=== PATIENT | male | born 1930 | race Caucasian/White ===

== ENCOUNTER 2016-10-06 07:04 | Emergency (ER) | payer MEDICARE, OTHER ==
--- NOTE | 2016-10-06 15:56 | EDDOCDS ---
Nurse's Notes [facility] Name: Thaddeus Griffith Age: 86 yrs Sex: Male : 1930 Arrival Date: 10/06/2016 Time: 07:04 Bed BHU1 Private MD: Bell, Diagnosis: Unspecified dementia;Major depressive disorder, recurrent, mild Presentation: 10/06 07:15 Presenting complaint: EMS states: Sent here from [facility] c/o mlb1 homicidal and suicidal ideations with recent thoughts of killing his . Mental Health Triage Level: Level 2: The patient displays active suicidal ideations. The patient displays active homicidal ideations. Adult Sepsis Screening: The patient does not have new or worsening altered mentation. Patient's respiratory rate is less than 22. Systolic blood pressure is greater than 100. Patient has a qSOFA score of 0- Negative Sepsis Screen. Mental Health Triage Level: Level 2:. Suicide/Homicide risk assessment- The patient admits to and/or has been reported to be having suicidal ideations. The patient admits to and/or has been reported to be having homicidal ideations. The patient reports that he/she has not been admitted to an inpatient mental health facility in the last 30 days. The patient reports that he/she does not have a recent or current history of substance abuse. The patient reports that he/she has no prior history of suicide attempt and/or organized plan. The patient reports that he/she has not experienced a significant life altering event in the last 30 days. The patient reports that he/she lacks adequate social support. The patient reports he/she has significant chronic medical condition(s). Status: Patient is not a supervisor volunteer services or dependent. Transition of care: patient was received from [facility]. 07:15 Acuity: SHANNON Level 3 mlb1 07:15 Method Of Arrival: Ambulance mlb1 Triage Assessment: 07:32 General: Appears in no apparent distress, Behavior is appropriate for age, cooperative. mlb1 Pain: Denies pain. The patient is triaged at the bedside. See Assessment in Nurses Notes section of ED record. Neurological: Level of Consciousness is awake, alert, Oriented to person, place. Respiratory: Airway is patent Respiratory effort is even, unlabored. Historical: - Allergies: Isoproterenol; Lisinopril; - Home Meds: 1. aspirin 81 mg Oral tab 1 tab once daily (Last dose: 10/05/2016) 2. finasteride 5 mg oral tab 1 tab once daily (Last dose: 10/05/2016) 3. propafenone 150 mg Oral tab three times a day (Last dose: 10/05/2016) 4. valsartan 160 mg oral tab 1 tab once daily (Last dose: 10/05/2016) 5. digoxin 125 mcg Oral tab 1 tab once daily (Last dose: 10/05/2016) 6. Namenda oral 7 mg oral daily (Last dose: 10/05/2016) 7. tamsulosin 0.4 mg oral cp24 1 cap once daily (Last dose: 10/05/2016) 8. lacosamide 150 mg oral tab 1 tab 2 times per day (Last dose: 10/05/2016) 9. donepezil 10 mg oral tab 1 tab once daily (Last dose: 10/05/2016) 10. levetiracetam 500 mg oral tab 1 tab 2 times per day (Last dose: 10/05/2016) 11. Mirtazapine Oral 12. mirtazapine 30 mg Oral tab 1 tab nightly (Last dose: 10/05/2016) 13. Sertraline 25 mg daily (Last dose: 10/05/2016) - PMHx: Dementia; Hypertension; Osteoarthritis; Cataracts; BPH; Atrial Fib; Subdural Hematoma; - PSHx: Hernia repair; hip sugery; - The history from nurses notes was reviewed: and I agree with what is documented. - Social history: Smoking status: Patient states was never smoker of tobacco. No barriers to communication noted, The patient speaks fluent South African, Speaks appropriately for age. - : The pt / caregiver states he / she is not on anticoagulants. Home medication list is obtained from the facility MAR. - Exposure Risk Screening:: None identified. - Immunization history:: unknown. - Family history: Not pertinent. - Social history:: resides in a [facility]. Screenin:36 Screening information is obtained from [facility] record. Fall risk: At risk due to age, The mlb1 following interventions are performed due to a positive Fall Risk Screen: Fall Risk is added to Special Handling on the patient Summary Screen. A Fall Risk Bracelet was applied to the patient. Side Rails are placed in the up position. A Call [place] is given with instruction to call for help when getting out of bed. Fall Alert bracelet is placed on the patient. Assistance ADL's: Requires assistance with ambulation, assistance is provided by supervised. medication administration, assistance is provided by residence staff. Abuse/DV Screen: The patient / caregiver reports he/she is: not in a situation that causes fear, pain or injury. Nutritional screening: No deficits noted. Advance Directives: Currently, there is There is an active DNR order but there is no copy available at this time. home support is adequate. Assessment: 07:43 General: Appears in no apparent distress, comfortable, Behavior is appropriate for age, mlb1 cooperative. Pain: Denies pain. Neurological: Level of Consciousness is awake, alert, Oriented to person, place. Respiratory: No deficits noted. Derm: No deficits noted. 08:30 General: Appears in no apparent distress, comfortable, Behavior is cooperative, quiet. mlb1 Pain: Denies pain. 09:22 General: Appears Pt ambulated out of room unsteady gait witnessed by security staff mlb1 began to fall assisted to floor by security staff no injury noted. 09:30 General: Appears in no apparent distress, comfortable, Behavior is appropriate for age, mlb1 cooperative. Pain: Denies pain. Neurological: Level of Consciousness is awake, confused, Oriented to person, place. Respiratory: No deficits noted. Musculoskeletal: Circulation, motion, and sensation intact Range of motion intact in all extremities. Injury Description: No known injury. 10:20 General: Appears in no apparent distress, comfortable, Behavior is appropriate for age, mlb1 cooperative. Pain: Denies pain. Neurological: Level of Consciousness is awake, alert, Oriented to person, place. Respiratory: No deficits noted. 11:15 General: Appears in no apparent distress, comfortable, to be sleeping. Behavior is mlb1 appropriate for age, cooperative. 12:17 General: Appears in no apparent distress, comfortable, Behavior is appropriate for age, mlb1 cooperative. Pain: Denies pain. Respiratory: No deficits noted. 13:43 General: Appears in no apparent distress, comfortable, Behavior is appropriate for age, mlb1 cooperative. Pain: Denies pain. Neurological: Level of Consciousness is awake, alert, Oriented to person, place. Respiratory: No deficits noted. 14:50 General: Appears in no apparent distress, comfortable, Behavior is appropriate for age, mlb1 cooperative. Pain: Denies pain. Neurological: Level of Consciousness is awake, alert, Oriented to person, place. Derm: No deficits noted. 15:53 General: Appears in no apparent distress, comfortable, Behavior is appropriate for age, mlb1 cooperative. Neurological: Level of Consciousness is awake, alert, Oriented to person, place. Respiratory: No deficits noted. Mental Health Eval: 08:45 Mental health consult is initiated at 08:45. Status: The patient is not a me supervisor volunteer services or dependent. [facility] Behavioral Health: The patient is not an established patient of [facility] Behavioral Health. Referral Information: Evaluation referral is generated by [facility]. The patient was referred for evaluation because reportedly made suicidal and homicidal statements last night. 09:09 Subjective: The patients chief complaint is Pt is difficult to interview due to hearing ca impairment. . 10:31 Subjective: The patients chief complaint is Pt shouts he is not suicidal, "that is ca bullshit!" Admits to sometimes making statements and then says he doesn't mean it.. Patient's mood is irritable, Pt is a resident at [facility]'s [facility]. Spoke to pt's daughter, Clarissa ([phone]). She is in support of pt being returned to usp. She says pt sometimes makes statements of SI/HI. He has been seen recently by psychiatrist Dr Luu and some med changes had been advised. However it is not clear whether the changes were implemented. Pt resides on a dementia unit at [facility]. Mental Health history: no relevant mental health problems or treatments. Current living environment is Family / Home Support: Good family supports The patient currently lives [facility]. The patient is . Patient presents to Emergency Department with the following symptoms within the past 2 weeks: agitation, anger. Mental status exam: Patients appearance is disheveled thin, Patient's behavior is Behavior varies . Mood is irritable. Appetite is normal. Memory is fair. Energy level is normal. Thought process is loose. Cognitive level is Oriented to person, situation Patient's insight is poor. Judgement is poor. Rapport with interviewer is good. Suicidal Ideation is denied. Homicidal ideation is denied. Disposition: Medically cleared for disposition by Jesse Cm MD Psychiatric Consult is performed by phone with Dr Erica Rizo. DSM-V Differential Diagnosis: Dementia. Narrative: Awaiting transport back to SNF via [place] at 3pm. Daughter made aware pt is returning to [facility] and si in agreement with this plan. Vital Signs: 07:13 BP 165 / 79; Pulse 50; Resp 16; Temp 97.5(O); Pulse Ox 98% on R/A; Pain 0/10; mlb1 15:54 BP 114 / 72; Pulse 90; Resp 16; Temp 98.1(O); Pulse Ox 95% on R/A; Pain 0/10; mlb1 Vitals: 07:43 Log In Time N/A - ambulance arrival. mlb1 ED Course: 07:06 Patient visited by Sangita Meyers, Lactation Consultant. lbd 07:06 Patient moved to [facility] lbd 07:06 Patient moved to [facility] lbd 07:15 Psych Safety Check: Location: Psych Room. Visual Assessment: Cooperative. pjf 07:18 Triage Initiated mlb1 07:30 Psych Safety Check: Location: Psych Room. Visual Assessment: Cooperative, appears to be pjf sleeping. Psych Safety Check: Location: Psych Room. Visual Assessment: Cooperative. 07:43 Patient visited by Markel Quiñones RN. mlb1 07:45 Psych Safety Check: Location: Psych Room. Visual Assessment: Cooperative. pjf 08:04 Jesse Cm MD is Attending Physician. pc 08:05 Patient visited by Mendoza Butler Security Aide. pjf 08:12 Patient visited by Jesse Cm MD. pc 08:20 Patient visited by Mendoza Butler Security Aide. pjf 08:33 Patient visited by Mendoza Butler Security Aide. pjf 08:53 Patient visited by Mendoza Butler Security Aide. pjf 09:06 Patient visited by Mendoza Butler Security Aide. pjf 09:17 Patient visited by Mendoza Butler Security Aide. pjf 09:19 Referral list, As provided by NEISHA is Referral Physician. pc 09:20 Bell is Private Physician. pc 09:20 Bell is Referral Physician. pc 09:25 The patient / caregiver is instructed regarding the plan of care and ED course. mlb1 09:25 No IV's were initiated during this patient's visit. No procedures done that require mlb1 assistance. 09:34 Patient visited by Ferendzo, Mendoza, Security Aide. pjf 09:47 Patient visited by Jorge Gonzalez. rn1 10:01 Patient visited by Mendoza Butler Security Aide. pjf 10:18 Patient visited by Mendoza Butler Security Aide. pjf 10:34 Patient visited by Mendoza Butler Security Aide. pjf 10:51 Patient visited by Mendoza Butler Security Aide. pjf 10:56 Patient visited by Mendoza Butler Security Aideduardo. pjf 11:10 Patient visited by Jorge Gonzalez. rn1 11:35 Patient visited by Jorge Gonzalez. rn1 11:36 [facility] Payment Agreement was scanned into [employer] and attached to record. lg 11:42 Patient visited by Markel Quiñones, SHERRI. mlb1 11:56 Patient visited by Jorge Gonzalez. rn1 12:05 Patient visited by Jorge Gonzalez. rn1 12:17 Patient visited by Markel Quiñones, SHERRI. mlb1 12:19 Patient visited by Jorge Gonzalez. rn1 12:32 Patient visited by Jorge Gonzalez. rn1 12:48 Patient visited by Jorge Gonzalez. rn1 13:10 Patient visited by Jorge Gonzalez. rn1 13:15 Patient visited by Jorge Gonzalez. rn1 13:28 Patient visited by Jorge Gonzalez. rn1 13:44 Patient visited by Markel Quiñones, SHERRI. mlb1 13:55 Patient visited by Jorge Gonzalez. rn1 14:00 Patient visited by Jorge Gonzalez. rn1 14:16 Patient visited by Jorge Gonzalez. rn1 15:04 Patient visited by Jorge Gonzalez. rn1 15:32 Patient visited by Jorge Gonzalez. rn1 15:51 Patient visited by Jorge Gonzalez. rn1 Order Results: There are currently no results for this order. Outcome: 09:19 Discharge ordered by Provider. pc 15:53 Discharge Assessment: Patient awake, alert and oriented x 3. No cognitive and/or mlb1 functional deficits noted. Patient verbalized understanding of disposition instructions. patient administered narcotics - no. The following High Risk Discharge criteria are identified: None. Discharged to Extended Care Facility [facility]. Condition: good. Discharge instructions given to patient, Instructed on discharge instructions, follow up and referral plans. Demonstrated understanding of instructions, Pt was receptive of discharge instructions/ teaching. No special radiology studies were completed. Property :Personal belongings accompany Pt. 15:55 Patient left the ED. mlb1 Signatures: Jesse Cm MD MD pc Sangita Meyers, Lactation Consultant Unit lbd Eduardo, Jodee, PSA PSA ca Meagan Bravo, Reg Reg lg Mendoza Butler, Security Aide Markel Paz RN RN mlb1 Jorge Gonzalez rn1 Corrections: (The following items were deleted from the chart) 09:28 09:27 BP 129 / 81; Pulse 62bpm; Resp 16bpm; Pulse Ox 95% RA; Temp 96.5F Oral; Pain mlb1 0/10; mlb1 10:11 07:36 Fall risk: At risk due to age, mlb1 mlb1 MTDD
--- NOTE | 2016-10-06 15:56 | EDDOCDS ---
Physician Documentation [facility] Name: Thaddeus Griffith Age: 86 yrs Sex: Male : 1930 Arrival Date: 10/06/2016 Time: 07:04 Bed BHU1 Private MD: Bell, Disposition: 10/06 09:16 Critical Care: Critical care not applicable. pc Disposition: 10/06/16 09:19 Discharged to Home/Self Care. Impression: Unspecified dementia, Major depressive disorder, recurrent, mild. - Condition is Stable. - Discharge Instructions: Dementia, Depression, Adult. - Medication Reconciliation, Local Pharmacy Hours form. - Follow up: Referral list, As provided by PFS; Reason: Continuance of care. Follow up: Bell; When: As previously arranged; Reason: Continuance of care. - Problem is an ongoing problem. - Symptoms are unchanged. HPI: 08:30 This 86 yrs old Male presents to ER via Ambulance with complaints of Psych pc Problem. 08:30 The history is obtained from the patient, transfer records. In the emergency pc department, the symptoms. He lives [place] in [place], has dementia and made SI and HI threats last evening. He was seen at [facility] and medically cleared and transferred to [facility] for Psych eval. He denies any SI or HI and does not recall being in [facility] this morning. Historical: - Allergies: Isoproterenol; Lisinopril; - Home Meds: 1. aspirin 81 mg Oral tab 1 tab once daily (Last dose: 10/05/2016) 2. finasteride 5 mg oral tab 1 tab once daily (Last dose: 10/05/2016) 3. propafenone 150 mg Oral tab three times a day (Last dose: 10/05/2016) 4. valsartan 160 mg oral tab 1 tab once daily (Last dose: 10/05/2016) 5. digoxin 125 mcg Oral tab 1 tab once daily (Last dose: 10/05/2016) 6. Namenda oral 7 mg oral daily (Last dose: 10/05/2016) 7. tamsulosin 0.4 mg oral cp24 1 cap once daily (Last dose: 10/05/2016) 8. lacosamide 150 mg oral tab 1 tab 2 times per day (Last dose: 10/05/2016) 9. donepezil 10 mg oral tab 1 tab once daily (Last dose: 10/05/2016) 10. levetiracetam 500 mg oral tab 1 tab 2 times per day (Last dose: 10/05/2016) 11. Mirtazapine Oral 12. mirtazapine 30 mg Oral tab 1 tab nightly (Last dose: 10/05/2016) 13. Sertraline 25 mg daily (Last dose: 10/05/2016) - PMHx: Dementia; Hypertension; Osteoarthritis; Cataracts; BPH; Atrial Fib; Subdural Hematoma; - PSHx: Hernia repair; hip sugery; - The history from nurses notes was reviewed: and I agree with what is documented. - Social history: Smoking status: Patient states was never smoker of tobacco. No barriers to communication noted, The patient speaks fluent Nepali, Speaks appropriately for age. - : The pt / caregiver states he / she is not on anticoagulants. Home medication list is obtained from the facility MAR. - Exposure Risk Screening:: None identified. - Immunization history:: unknown. - Family history: Not pertinent. - Social history:: resides [place]. ROS: 08:30 unable to reliably obtain . pc Exam: 08:30 General Appearance: alert, no acute distress. pc 08:30 ENT: ear, nose and throat normal, pharynx normal. 08:30 Eyes: pupils equal, round and reactive to light, extraocular motions intact. 08:30 Neck: The exam reveals no acute abnormalities. ROM is normal and painless. No nuchal rigidity is noted.. 08:30 Respiratory: breathing is even and unlabored, breath sounds are normal. 08:30 Cardiovascular: regular pulse rate, regular heart rhythm, normal heart sounds, equal and full pulses bilaterally. 08:30 Abdomen: soft, non-tender, no organomegaly, normal bowel sounds. 08:30 Skin: skin color is normal, warm, dry. 08:30 Extremities: The extremities have a grossly normal appearance, are non-tender, without acute ROM abnormalities. 08:30 Neuro: alert, cranial nerves normal as tested, no motor deficits, no sensory deficits, disoriented to time. 08:30 Psych: mood is normal, affect is appropriate. Vital Signs: 07:13 BP 165 / 79; Pulse 50; Resp 16; Temp 97.5(O); Pulse Ox 98% on R/A; Pain 0/10; mlb1 15:54 BP 114 / 72; Pulse 90; Resp 16; Temp 98.1(O); Pulse Ox 95% on R/A; Pain 0/10; mlb1 MDM: 08:30 Differential diagnosis: dementia, reported SI/HI. Plan: PFS eval. pc 09:16 The patient has been medically cleared for psychiatric evaluation, admission and/or pc transfer. [place] reporting: Reporting to the [place] was not completed because the patient did not display any suicidal or homicidal ideation and was not considered a risk to self or others. Data reviewed: old medical records, vital signs, nurses notes, All records pertaining to the patient's transfer have been reviewed. Test interpretation: none. The patient has been re-examined and re-evaluated. The clinical presentation did not require any ED treatment or interventions. Other consultation: The ED dairy husbandry worker was notified and will evaluate the patient. 09:16 Physician consultation: Dr. Erica Rizo regarding patient's condition, and pc after discussing his evaluation by our PFS staff, she has directed the patient to be discharged back to [place], that a psychiatric admission is not indicated. 09:16 Disposition: The historical points, examination findings, and any diagnostic results pc supporting the provided diagnosis, were discussed with the patient or legal guardian. The need for outpatient follow up with the provider listed on their discharge instructions was discussed. They were encouraged to return to [facility], or the nearest ED, if symptoms worsen/persist, or for any other questions/concerns. 10:10 Financial registration complete. lg 11:36 [facility] Payment Agreement was scanned into [employer] and attached to record. lg 11:52 REGULAR DIET PLASTIC HANDLEY+DIET ordered. EDMS Signatures: Dispatcher [employer] EDMS Jesse Cm MD MD pc Ganter, LoriLee, Reg Reg lg Markel Quiñones RN RN mlb1 The chart was reviewed and I authenticate all verbal orders and agree with the evaluation and treatment provided.Attachments: 11:36 [facility] Payment Agreement lg MTDD
--- NOTE | 2016-10-08 16:57 | EDDOCDS ---
Physician Documentation [facility] Name: Thaddeus Griffith Age: 86 yrs Sex: Male : 1930 Arrival Date: 10/06/2016 Time: 07:04 Bed BHU1 Private MD: Bell, Disposition: 10/06 09:16 Critical Care: Critical care not applicable. pc Disposition: 10/06/16 09:19 Discharged to Home/Self Care. Impression: Unspecified dementia, Major depressive disorder, recurrent, mild. - Condition is Stable. - Discharge Instructions: Dementia, Depression, Adult. - Medication Reconciliation, Local Pharmacy Hours form. - Follow up: Referral list, As provided by PFS; Reason: Continuance of care. Follow up: Bell; When: As previously arranged; Reason: Continuance of care. - Problem is an ongoing problem. - Symptoms are unchanged. HPI: 08:30 This 86 yrs old Male presents to ER via Ambulance with complaints of Psych pc Problem. 08:30 The history is obtained from the patient, transfer records. In the emergency pc department, the symptoms. He lives in a assisted in [place], has dementia and made SI and HI threats last evening. He was seen at [facility] and medically cleared and transferred to [facility] for Psych eval. He denies any SI or HI and does not recall being in [facility] this morning. Historical: - Allergies: Isoproterenol; Lisinopril; - Home Meds: 1. aspirin 81 mg Oral tab 1 tab once daily (Last dose: 10/05/2016) 2. finasteride 5 mg oral tab 1 tab once daily (Last dose: 10/05/2016) 3. propafenone 150 mg Oral tab three times a day (Last dose: 10/05/2016) 4. valsartan 160 mg oral tab 1 tab once daily (Last dose: 10/05/2016) 5. digoxin 125 mcg Oral tab 1 tab once daily (Last dose: 10/05/2016) 6. Namenda oral 7 mg oral daily (Last dose: 10/05/2016) 7. tamsulosin 0.4 mg oral cp24 1 cap once daily (Last dose: 10/05/2016) 8. lacosamide 150 mg oral tab 1 tab 2 times per day (Last dose: 10/05/2016) 9. donepezil 10 mg oral tab 1 tab once daily (Last dose: 10/05/2016) 10. levetiracetam 500 mg oral tab 1 tab 2 times per day (Last dose: 10/05/2016) 11. Mirtazapine Oral 12. mirtazapine 30 mg Oral tab 1 tab nightly (Last dose: 10/05/2016) 13. Sertraline 25 mg daily (Last dose: 10/05/2016) - PMHx: Dementia; Hypertension; Osteoarthritis; Cataracts; BPH; Atrial Fib; Subdural Hematoma; - PSHx: Hernia repair; hip sugery; - The history from nurses notes was reviewed: and I agree with what is documented. - Social history: Smoking status: Patient states was never smoker of tobacco. No barriers to communication noted, The patient speaks fluent Japanese, Speaks appropriately for age. - : The pt / caregiver states he / she is not on anticoagulants. Home medication list is obtained from the facility MAR. - Exposure Risk Screening:: None identified. - Immunization history:: unknown. - Family history: Not pertinent. - Social history:: resides in a assisted. ROS: 08:30 unable to reliably obtain . pc Exam: 08:30 General Appearance: alert, no acute distress. pc 08:30 ENT: ear, nose and throat normal, pharynx normal. 08:30 Eyes: pupils equal, round and reactive to light, extraocular motions intact. 08:30 Neck: The exam reveals no acute abnormalities. ROM is normal and painless. No nuchal rigidity is noted.. 08:30 Respiratory: breathing is even and unlabored, breath sounds are normal. 08:30 Cardiovascular: regular pulse rate, regular heart rhythm, normal heart sounds, equal and full pulses bilaterally. 08:30 Abdomen: soft, non-tender, no organomegaly, normal bowel sounds. 08:30 Skin: skin color is normal, warm, dry. 08:30 Extremities: The extremities have a grossly normal appearance, are non-tender, without acute ROM abnormalities. 08:30 Neuro: alert, cranial nerves normal as tested, no motor deficits, no sensory deficits, disoriented to time. 08:30 Psych: mood is normal, affect is appropriate. Vital Signs: 07:13 BP 165 / 79; Pulse 50; Resp 16; Temp 97.5(O); Pulse Ox 98% on R/A; Pain 0/10; mlb1 15:54 BP 114 / 72; Pulse 90; Resp 16; Temp 98.1(O); Pulse Ox 95% on R/A; Pain 0/10; mlb1 MDM: 08:30 Differential diagnosis: dementia, reported SI/HI. Plan: PFS eval. pc 09:16 The patient has been medically cleared for psychiatric evaluation, admission and/or pc transfer. [place] Safe [place] reporting: Reporting to the [place] Safe [place] was not completed because the patient did not display any suicidal or homicidal ideation and was not considered a risk to self or others. Data reviewed: old medical records, vital signs, nurses notes, All records pertaining to the patient's transfer have been reviewed. Test interpretation: none. The patient has been re-examined and re-evaluated. The clinical presentation did not require any ED treatment or interventions. Other consultation: The ED farmworker egg producing farm was notified and will evaluate the patient. 09:16 Physician consultation: Dr. Erica Rizo regarding patient's condition, and pc after discussing his evaluation by our PFS staff, she has directed the patient to be discharged back to his assisted, that a psychiatric admission is not indicated. 09:16 Disposition: The historical points, examination findings, and any diagnostic results pc supporting the provided diagnosis, were discussed with the patient or legal guardian. The need for outpatient follow up with the provider listed on their discharge instructions was discussed. They were encouraged to return to [facility], or the nearest ED, if symptoms worsen/persist, or for any other questions/concerns. 10:10 Financial registration complete. lg 11:36 [facility] Payment Agreement was scanned into [id number] and attached to record. lg 11:52 REGULAR DIET PLASTIC HANDLEY+DIET ordered. EDAK 10/07 09:57 PCR was scanned into [id number] and attached to record. gb Signatures: Dispatcher [employer] EDAK Jesse Cm MD MD pc Bridgett Gallegos, Reg Reg gb Meagan Bravo, Reg Reg lg Markel Quiñones, RN RN mlb1 The chart was reviewed and I authenticate all verbal orders and agree with the evaluation and treatment provided.Attachments: 10/06 11:36 [facility] Payment Agreement lg Chart Complete MTDD
--- NOTE | 2016-10-08 16:57 | EDDOCDS ---
Physician Documentation [facility] Name: Thaddeus Griffith Age: 86 yrs Sex: Male : 1930 Arrival Date: 10/06/2016 Time: 07:04 Bed BHU1 Private MD: Bell, Disposition: 10/06 09:16 Critical Care: Critical care not applicable. pc Disposition: 10/06/16 09:19 Discharged to Home/Self Care. Impression: Unspecified dementia, Major depressive disorder, recurrent, mild. - Condition is Stable. - Discharge Instructions: Dementia, Depression, Adult. - Medication Reconciliation, Local Pharmacy Hours form. - Follow up: Referral list, As provided by PFS; Reason: Continuance of care. Follow up: Bell; When: As previously arranged; Reason: Continuance of care. - Problem is an ongoing problem. - Symptoms are unchanged. HPI: 08:30 This 86 yrs old Male presents to ER via Ambulance with complaints of Psych pc Problem. 08:30 The history is obtained from the patient, transfer records. In the emergency pc department, the symptoms. He lives in a fpc in [place], has dementia and made SI and HI threats last evening. He was seen at [facility] and medically cleared and transferred to [facility] for Psych eval. He denies any SI or HI and does not recall being in [facility] this morning. Historical: - Allergies: Isoproterenol; Lisinopril; - Home Meds: 1. aspirin 81 mg Oral tab 1 tab once daily (Last dose: 10/05/2016) 2. finasteride 5 mg oral tab 1 tab once daily (Last dose: 10/05/2016) 3. propafenone 150 mg Oral tab three times a day (Last dose: 10/05/2016) 4. valsartan 160 mg oral tab 1 tab once daily (Last dose: 10/05/2016) 5. digoxin 125 mcg Oral tab 1 tab once daily (Last dose: 10/05/2016) 6. Namenda oral 7 mg oral daily (Last dose: 10/05/2016) 7. tamsulosin 0.4 mg oral cp24 1 cap once daily (Last dose: 10/05/2016) 8. lacosamide 150 mg oral tab 1 tab 2 times per day (Last dose: 10/05/2016) 9. donepezil 10 mg oral tab 1 tab once daily (Last dose: 10/05/2016) 10. levetiracetam 500 mg oral tab 1 tab 2 times per day (Last dose: 10/05/2016) 11. Mirtazapine Oral 12. mirtazapine 30 mg Oral tab 1 tab nightly (Last dose: 10/05/2016) 13. Sertraline 25 mg daily (Last dose: 10/05/2016) - PMHx: Dementia; Hypertension; Osteoarthritis; Cataracts; BPH; Atrial Fib; Subdural Hematoma; - PSHx: Hernia repair; hip sugery; - The history from nurses notes was reviewed: and I agree with what is documented. - Social history: Smoking status: Patient states was never smoker of tobacco. No barriers to communication noted, The patient speaks fluent Portuguese, Speaks appropriately for age. - : The pt / caregiver states he / she is not on anticoagulants. Home medication list is obtained from the facility MAR. - Exposure Risk Screening:: None identified. - Immunization history:: unknown. - Family history: Not pertinent. - Social history:: resides in a fpc. ROS: 08:30 unable to reliably obtain . pc Exam: 08:30 General Appearance: alert, no acute distress. pc 08:30 ENT: ear, nose and throat normal, pharynx normal. 08:30 Eyes: pupils equal, round and reactive to light, extraocular motions intact. 08:30 Neck: The exam reveals no acute abnormalities. ROM is normal and painless. No nuchal rigidity is noted.. 08:30 Respiratory: breathing is even and unlabored, breath sounds are normal. 08:30 Cardiovascular: regular pulse rate, regular heart rhythm, normal heart sounds, equal and full pulses bilaterally. 08:30 Abdomen: soft, non-tender, no organomegaly, normal bowel sounds. 08:30 Skin: skin color is normal, warm, dry. 08:30 Extremities: The extremities have a grossly normal appearance, are non-tender, without acute ROM abnormalities. 08:30 Neuro: alert, cranial nerves normal as tested, no motor deficits, no sensory deficits, disoriented to time. 08:30 Psych: mood is normal, affect is appropriate. Vital Signs: 07:13 BP 165 / 79; Pulse 50; Resp 16; Temp 97.5(O); Pulse Ox 98% on R/A; Pain 0/10; mlb1 15:54 BP 114 / 72; Pulse 90; Resp 16; Temp 98.1(O); Pulse Ox 95% on R/A; Pain 0/10; mlb1 MDM: 08:30 Differential diagnosis: dementia, reported SI/HI. Plan: PFS eval. pc 09:16 The patient has been medically cleared for psychiatric evaluation, admission and/or pc transfer. [place] Safe [place] reporting: Reporting to the [place] Safe [place] was not completed because the patient did not display any suicidal or homicidal ideation and was not considered a risk to self or others. Data reviewed: old medical records, vital signs, nurses notes, All records pertaining to the patient's transfer have been reviewed. Test interpretation: none. The patient has been re-examined and re-evaluated. The clinical presentation did not require any ED treatment or interventions. Other consultation: The ED ornamental metal worker helper was notified and will evaluate the patient. 09:16 Physician consultation: Dr. Erica Rizo regarding patient's condition, and pc after discussing his evaluation by our PFS staff, she has directed the patient to be discharged back to his fpc, that a psychiatric admission is not indicated. 09:16 Disposition: The historical points, examination findings, and any diagnostic results pc supporting the provided diagnosis, were discussed with the patient or legal guardian. The need for outpatient follow up with the provider listed on their discharge instructions was discussed. They were encouraged to return to [facility], or the nearest ED, if symptoms worsen/persist, or for any other questions/concerns. 10:10 Financial registration complete. lg 11:36 [facility] Payment Agreement was scanned into [facility] and attached to record. lg 11:52 REGULAR DIET PLASTIC HANDLEY+DIET ordered. EDFL 10/07 09:57 PCR was scanned into [employer] and attached to record. gb Signatures: Dispatcher [employer] EDFL Jesse Cm MD MD pc Bridgett Gallegos, Reg Reg gb Meagan Bravo, Reg Reg lg Markel Quiñones, RN RN mlb1 The chart was reviewed and I authenticate all verbal orders and agree with the evaluation and treatment provided.Attachments: 10/06 11:36 [facility] Payment Agreement lg Chart Complete MTDD
--- NOTE | 2016-10-08 16:58 | EDDOCDS ---
Nurse's Notes [facility] Name: Thaddeus Griffith Age: 86 yrs Sex: Male : 1930 Arrival Date: 10/06/2016 Time: 07:04 Bed BHU1 Private MD: Bell, Diagnosis: Unspecified dementia;Major depressive disorder, recurrent, mild Presentation: 10/06 07:15 Presenting complaint: EMS states: Sent here from [facility] c/o mlb1 homicidal and suicidal ideations with recent thoughts of killing his . Mental Health Triage Level: Level 2: The patient displays active suicidal ideations. The patient displays active homicidal ideations. Adult Sepsis Screening: The patient does not have new or worsening altered mentation. Patient's respiratory rate is less than 22. Systolic blood pressure is greater than 100. Patient has a qSOFA score of 0- Negative Sepsis Screen. Mental Health Triage Level: Level 2:. Suicide/Homicide risk assessment- The patient admits to and/or has been reported to be having suicidal ideations. The patient admits to and/or has been reported to be having homicidal ideations. The patient reports that he/she has not been admitted to an inpatient mental health facility in the last 30 days. The patient reports that he/she does not have a recent or current history of substance abuse. The patient reports that he/she has no prior history of suicide attempt and/or organized plan. The patient reports that he/she has not experienced a significant life altering event in the last 30 days. The patient reports that he/she lacks adequate social support. The patient reports he/she has significant chronic medical condition(s). Status: Patient is not a horticultural services supervisor or dependent. Transition of care: patient was received from [facility]. 07:15 Acuity: SHANNON Level 3 mlb1 07:15 Method Of Arrival: Ambulance mlb1 Triage Assessment: 07:32 General: Appears in no apparent distress, Behavior is appropriate for age, cooperative. mlb1 Pain: Denies pain. The patient is triaged at the bedside. See Assessment in Nurses Notes section of ED record. Neurological: Level of Consciousness is awake, alert, Oriented to person, place. Respiratory: Airway is patent Respiratory effort is even, unlabored. Historical: - Allergies: Isoproterenol; Lisinopril; - Home Meds: 1. aspirin 81 mg Oral tab 1 tab once daily (Last dose: 10/05/2016) 2. finasteride 5 mg oral tab 1 tab once daily (Last dose: 10/05/2016) 3. propafenone 150 mg Oral tab three times a day (Last dose: 10/05/2016) 4. valsartan 160 mg oral tab 1 tab once daily (Last dose: 10/05/2016) 5. digoxin 125 mcg Oral tab 1 tab once daily (Last dose: 10/05/2016) 6. Namenda oral 7 mg oral daily (Last dose: 10/05/2016) 7. tamsulosin 0.4 mg oral cp24 1 cap once daily (Last dose: 10/05/2016) 8. lacosamide 150 mg oral tab 1 tab 2 times per day (Last dose: 10/05/2016) 9. donepezil 10 mg oral tab 1 tab once daily (Last dose: 10/05/2016) 10. levetiracetam 500 mg oral tab 1 tab 2 times per day (Last dose: 10/05/2016) 11. Mirtazapine Oral 12. mirtazapine 30 mg Oral tab 1 tab nightly (Last dose: 10/05/2016) 13. Sertraline 25 mg daily (Last dose: 10/05/2016) - PMHx: Dementia; Hypertension; Osteoarthritis; Cataracts; BPH; Atrial Fib; Subdural Hematoma; - PSHx: Hernia repair; hip sugery; - The history from nurses notes was reviewed: and I agree with what is documented. - Social history: Smoking status: Patient states was never smoker of tobacco. No barriers to communication noted, The patient speaks fluent [place]ian, Speaks appropriately for age. - : The pt / caregiver states he / she is not on anticoagulants. Home medication list is obtained from the facility MAR. - Exposure Risk Screening:: None identified. - Immunization history:: unknown. - Family history: Not pertinent. - Social history:: resides in a shelter. Screenin:36 Screening information is obtained from [facility] record. Fall risk: At risk due to age, The mlb1 following interventions are performed due to a positive Fall Risk Screen: Fall Risk is added to Special Handling on the patient Summary Screen. A Fall Risk Bracelet was applied to the patient. Side Rails are placed in the up position. A Call [place] is given with instruction to call for help when getting out of bed. Fall Alert bracelet is placed on the patient. Assistance ADL's: Requires assistance with ambulation, assistance is provided by supervised. medication administration, assistance is provided by residence staff. Abuse/DV Screen: The patient / caregiver reports he/she is: not in a situation that causes fear, pain or injury. Nutritional screening: No deficits noted. Advance Directives: Currently, there is There is an active DNR order but there is no copy available at this time. home support is adequate. Assessment: 07:43 General: Appears in no apparent distress, comfortable, Behavior is appropriate for age, mlb1 cooperative. Pain: Denies pain. Neurological: Level of Consciousness is awake, alert, Oriented to person, place. Respiratory: No deficits noted. Derm: No deficits noted. 08:30 General: Appears in no apparent distress, comfortable, Behavior is cooperative, quiet. mlb1 Pain: Denies pain. 09:22 General: Appears Pt ambulated out of room unsteady gait witnessed by security staff mlb1 began to fall assisted to floor by security staff no injury noted, pt returned to room with assist reoriented to room side rails up x [address]. 09:30 General: Appears in no apparent distress, comfortable, Behavior is appropriate for age, mlb1 cooperative. Pain: Denies pain. Neurological: Level of Consciousness is awake, confused, Oriented to person, place. Respiratory: No deficits noted. Musculoskeletal: Circulation, motion, and sensation intact Range of motion intact in all extremities. Injury Description: No known injury. 10:20 General: Appears in no apparent distress, comfortable, Behavior is appropriate for age, mlb1 cooperative. Pain: Denies pain. Neurological: Level of Consciousness is awake, alert, Oriented to person, place. Respiratory: No deficits noted. 11:15 General: Appears in no apparent distress, comfortable, to be sleeping. Behavior is mlb1 appropriate for age, cooperative. 12:17 General: Appears in no apparent distress, comfortable, Behavior is appropriate for age, mlb1 cooperative. Pain: Denies pain. Respiratory: No deficits noted. 13:43 General: Appears in no apparent distress, comfortable, Behavior is appropriate for age, mlb1 cooperative. Pain: Denies pain. Neurological: Level of Consciousness is awake, alert, Oriented to person, place. Respiratory: No deficits noted. 14:50 General: Appears in no apparent distress, comfortable, Behavior is appropriate for age, mlb1 cooperative. Pain: Denies pain. Neurological: Level of Consciousness is awake, alert, Oriented to person, place. Derm: No deficits noted. 15:53 General: Appears in no apparent distress, comfortable, Behavior is appropriate for age, mlb1 cooperative. Neurological: Level of Consciousness is awake, alert, Oriented to person, place. Respiratory: No deficits noted. Mental Health Eval: 08:45 Mental health consult is initiated at 08:45. Status: The patient is not a ca horticultural services supervisor or dependent. [facility] Behavioral Health: The patient is not an established patient of [facility] Behavioral Health. Referral Information: Evaluation referral is generated by [facility]. The patient was referred for evaluation because reportedly made suicidal and homicidal statements last night. 09:09 Subjective: The patients chief complaint is Pt is difficult to interview due to hearing ca impairment. . 10:31 Subjective: The patients chief complaint is Pt shouts he is not suicidal, "that is ca bullshit!" Admits to sometimes making statements and then says he doesn't mean it.. Patient's mood is irritable, Pt is a resident at [facility]'s shelter. Spoke to pt's daughter, Clarissa ([phone]). She is in support of pt being returned to shelter. She says pt sometimes makes statements of SI/HI then retracts them. She adds that she would like pt to return to the shelter. He has been seen recently by psychiatrist Dr Luu and some med changes had been advised. However it is not clear whether the changes were implemented. Pt resides on a dementia unit at [facility]. Mental Health history: no relevant mental health problems or treatments. Current living environment is Family / Home Support: Good family supports The patient currently lives [facility] shelter. The patient is . Patient presents to Emergency Department with the following symptoms within the past 2 weeks: agitation, anger. Mental status exam: Patients appearance is disheveled thin, Patient's behavior is Behavior varies . Mood is irritable. Appetite is normal. Memory is fair. Energy level is normal. Thought process is loose. Cognitive level is Oriented to person, situation Patient's insight is poor. Judgement is poor. Rapport with interviewer is good. Suicidal Ideation is denied. Homicidal ideation is denied. Disposition: Medically cleared for disposition by Jesse Cm MD Psychiatric Consult is performed by phone with Dr Erica Rizo. DSM-V Differential Diagnosis: Dementia. Narrative: Awaiting transport back to SNF via [facility] at 3pm. Daughter made aware pt is returning to shelter and is in agreement with this plan. Daughter also made aware that [facility] will be transporting pt. Vital Signs: 07:13 BP 165 / 79; Pulse 50; Resp 16; Temp 97.5(O); Pulse Ox 98% on R/A; Pain 0/10; mlb1 15:54 BP 114 / 72; Pulse 90; Resp 16; Temp 98.1(O); Pulse Ox 95% on R/A; Pain 0/10; mlb1 Vitals: 07:43 Log In Time N/A - ambulance arrival. mlb1 ED Course: 07:06 Patient visited by Sangita Meyers, Travel Agent. lbd 07:06 Patient moved to [facility] lbd 07:06 Patient moved to [facility] lbd 07:15 Psych Safety Check: Location: Psych Room. Visual Assessment: Cooperative. pjf 07:18 Triage Initiated mlb1 07:30 Psych Safety Check: Location: Psych Room. Visual Assessment: Cooperative, appears to be pjf sleeping. Psych Safety Check: Location: Psych Room. Visual Assessment: Cooperative. 07:43 Patient visited by Markel Quiñones RN. mlb1 07:45 Psych Safety Check: Location: Psych Room. Visual Assessment: Cooperative. pjf 08:04 Jesse Cm MD is Attending Physician. pc 08:05 Patient visited by Mendoza Butler Security Aide. pjf 08:12 Patient visited by Jesse Cm MD. pc 08:20 Patient visited by Mendoza Butler Security Aide. pjf 08:33 Patient visited by Mendoza Butler Security Aide. pjf 08:53 Patient visited by Mendoza Butler Security Aide. pjf 09:06 Patient visited by Mendoza Butler Security Aide. pjf 09:17 Patient visited by Mendoza Butler Security Aide. pjf 09:19 Referral list, As provided by NEISHA is Referral Physician. pc 09:20 Bell is Private Physician. pc 09:20 Bell is Referral Physician. pc 09:25 The patient / caregiver is instructed regarding the plan of care and ED course. mlb1 09:25 No IV's were initiated during this patient's visit. No procedures done that require mlb1 assistance. 09:34 Patient visited by Mendoza Butler Security Aide. pjf 09:47 Patient visited by Jorge Gonzalez. rn1 10:01 Patient visited by Mendoza Butler Security Aide. pjf 10:18 Patient visited by Mendoza Butler Security Aide. pjf 10:34 Patient visited by Mendoza Butler Security Aide. pjf 10:51 Patient visited by Mendoza Butler Security Aide. pjf 10:56 Patient visited by Mendoza Butler Security Aide. pjf 11:10 Patient visited by Jorge Gonzalez. rn1 11:35 Patient visited by Jorge Gonzalez. rn1 11:36 [facility] Payment Agreement was scanned into [employer] and attached to record. lg 11:42 Patient visited by Markel Quiñones, SHERRI. mlb1 11:56 Patient visited by Jorge Gonzalez. rn1 12:05 Patient visited by Jorge Gonzalez. rn1 12:17 Patient visited by Markel Quiñones, SHERRI. mlb1 12:19 Patient visited by Jorge Gonzalez. rn1 12:32 Patient visited by Jorge Gonzalez. rn1 12:48 Patient visited by Jorge Gonzalez. rn1 13:10 Patient visited by Jorge Gonzalez. rn1 13:15 Patient visited by Jorge Gonzalez. rn1 13:28 Patient visited by Jorge Gonzalez. rn1 13:44 Patient visited by Markel Quiñones, SHERRI. mlb1 13:55 Patient visited by Jorge Gonzalez. rn1 14:00 Patient visited by Jorge Gonzalez. rn1 14:16 Patient visited by Jorge Gonzalez. rn1 15:04 Patient visited by oJrge Gonzalez. rn1 15:32 Patient visited by Jorge Gonzalez. rn1 15:51 Patient visited by Jorge Gonzalez. rn1 10/07 09:57 PCR was scanned into [employer] and attached to record. gb Order Results: There are currently no results for this order. Outcome: 10/06 09:19 Discharge ordered by Provider. pc 15:53 Discharge Assessment: Patient awake, alert and oriented x 3. No cognitive and/or mlb1 functional deficits noted. Patient verbalized understanding of disposition instructions. patient administered narcotics - no. The following High Risk Discharge criteria are identified: None. Discharged to Extended Care Facility [facility]. Condition: good. Discharge instructions given to patient, Instructed on discharge instructions, follow up and referral plans. Demonstrated understanding of instructions, Pt was receptive of discharge instructions/ teaching. No special radiology studies were completed. Property :Personal belongings accompany Pt. 15:55 Patient left the ED. mlb1 Signatures: Jesse Cm MD MD pc Daly, Linda, Travel Agent Unit lbd Jodee Clark, PSA PSA ca Bridgett Gallegos, Reg Reg gb Shelly, Meagan, Reg Reg lg Carrie, Mendoza, Security Aide Markel Paz RN RN mlb1 Jorge Gonzalez rn1 Corrections: (The following items were deleted from the chart) 09:28 09:27 BP 129 / 81; Pulse 62bpm; Resp 16bpm; Pulse Ox 95% RA; Temp 96.5F Oral; Pain mlb1 0/10; mlb1 10:11 07:36 Fall risk: At risk due to age, mlb1 mlb1 16:10 09:22 General: Appears Pt ambulated out of room unsteady gait witnessed by security mlb1 staff began to fall assisted to floor by security staff no injury noted. mlb1 16:35 10:31 Narrative: Awaiting transport back to SNF via [facility] at 3pm. Daughter made ca aware pt is returning to shelter and si in agreement with this plan ca 16:37 10:31 Disposition: Medically cleared for disposition by Jesse Cm MD Psychiatric ca Consult is performed by phone with Dr Erica Rizo ca 16:41 10:31 Subjective: The patients chief complaint is Pt shouts he is not suicidal, "that ca is bullshit!" Admits to sometimes making statements and then says he doesn't mean it.. Patient's mood is irritable, Pt is a resident at [facility]'s shelter. Spoke to pt's daughter, Clarissa ([phone]). She is in support of pt being returned to shelter. She says pt sometimes makes statements of SI/HI. He has been seen recently by psychiatrist Dr Luu and some med changes had been advised. However it is not clear whether the changes were implemented. Pt resides on a dementia unit at [facility]. ca Chart Complete MTDD
== END 2016-10-06 15:55 | disposition home or self-care (01) ==
LOC: M ED 07:04
DX: F03.90 Unspecified dementia, unspecified severity, without behavioral disturbance, psychotic disturbance, mood disturbance, and anxiety (principal); F32.9 Major depressive disorder, single episode, unspecified; I10 Essential (primary) hypertension; M19.90 Unspecified osteoarthritis, unspecified site; H26.9 Unspecified cataract; N40.0 Benign prostatic hyperplasia without lower urinary tract symptoms; I48.91 Unspecified atrial fibrillation; Z79.82 Long term (current) use of aspirin; Z79.899 Other long term (current) drug therapy; Z88.8 Allergy status to other drugs, medicaments and biological substances